=== PATIENT | female | born 1980 | race Caucasian/White ===

== ENCOUNTER 2019-01-21 23:30 | Emergency (ER) | payer OTHER ==
[~2019-01-21] VITALS: Ht 162.6 cm; Wt 99.8 kg
[~2019-01-21 23:30] MED LIST: CONTRAVE ER 8-1 EACH; COZAAR100 MG; FLAGYL500 MG PO; NORCO 10-325 T1 EACH PO; NORVASC5 MG PO; PRINIVIL20 MG PO
[2019-01-22 00:32] LABS: ABSOLUTE BASOPHILS 0.1 thou/uL (0.0-0.2); ABSOLUTE EOSINOPHILS 0.2 thou/uL (0.0-0.7); ABSOLUTE LYMPHOCYTES 2.8 thou/uL (0.8-5.3); ABSOLUTE MONOCYTES 0.6 thou/uL (0.0-1.2); ABSOLUTE NEUTROPHILS 7.4 thou/uL (1.6-8.1); BASOPHILS 0.6 %; EOSINOPHILS 1.4 %; HEMATOCRIT 41.5 % (37.0-47.0); HEMOGLOBIN 14.3 gm/dL (12.0-15.0); LYMPHOCYTES 25.1 %; MCH 30.7 pg (26.0-34.0); MCHC 34.5 g/dL (28.0-37.0); MCV 88.9 fL (80.0-100.0); MONOCYTES 5.7 %; MPV 8.3 fl. (7.2-11.1); NUCLEATED RBCS 0 /100WBC; PLATELET COUNT* 420 thou/uL (150-400); POLYS 67.2 %; RBC 4.67 mil/uL (4.20-5.00); RDW-CV 12.4 % (10.5-14.5); WBC 11.1 thou/uL (4.0-11.0)
[2019-01-22 00:37] LABS: CALCIUM 8.9 mg/dL (8.5-10.1); CREATININE 0.8 mg/dL (0.6-1.3); POTASSIUM 3.4 mmol/L (3.5-5.1)
[2019-01-22 00:42] LABS: ALBUMIN 3.6 g/dL (3.4-5.0); TOTAL BILIRUBIN 0.3 mg/dL (<0.1-1.0); TOTAL PROTEIN 7.6 g/dL (6.4-8.2)
[2019-01-22] MEDS ORDERED: ATIVAN0.5 MG PO (00:55)
[2019-01-22 01:04] LABS: URINE BILIRUBIN NEGATIVE (Negative); URINE BLOOD NEGATIVE (Negative); URINE CLARITY CLEAR; URINE COLOR YELLOW; URINE GLUCOSE-RANDOM NEGATIVE (Negative); URINE KETONES NEGATIVE (Negative); URINE LEUKOCYTES-REFLEX NEGATIVE (Negative); URINE NITRITE-REFLEX NEGATIVE (Negative); URINE PROTEIN NEGATIVE (Negative); URINE SPECIFIC GRAVITY 1.015 (1.005-1.030); URINE UROBILINOGEN 0.2 E.U./dl (0.2-1.0)
[2019-01-22 01:54] VITALS: BP 143/87
--- NOTE | 2019-01-22 11:40 | EKG ---
[place] [address] ELECTROCARDIOGRAM REPORT Name: KWESI DIXON Room: [facility]#: [id number] Admission: 01/21/19 Attend Phys: Discharge: 01/22/19 Date of : 78 Report #: [id number] THIS REPORT FOR: //name// [facility] ED Test Date: 2019-01-22 Test Time: 00:08:12 Pat Name: KWESI DIXON Department: Room: Gender: F Operations Lieutenant: PABLITO : 1980 Requested By: Zeyad Sena Order Number: [id number] MD: Melvin Elizondo Measurements Intervals [place] Rate: 82 P: 56 NM: 185 QRS: -2 QRSD: 93 T: 20 QT: 366 QTc: 428 Interpretive Statements Sinus rhythm Low voltage, precordial leads Nonspecific T abnormalities, anterior leads Compared to ECG 09/11/2016 20:38:55 Low QRS voltage now present T-wave abnormality now present Electronically Signed On 01-22-2019 11:40:23 CDT by Melvin Elizondo [email or web address] <ELECTRONICALLY SIGNED> By: Melvin Elizondo MD, [facility] 01/22/19 1140 0008 0008 Melvin Elizondo MD, [facility] /EPI
== END 2019-01-22 01:54 | disposition home or self-care (01) ==
LOC: M.ERS 23:30
PROVIDERS: Family Medicine
DX: F41.0 Panic disorder [episodic paroxysmal anxiety] (principal); I10 Essential (primary) hypertension; Z90.710 Acquired absence of both cervix and uterus; Z90.49 Acquired absence of other specified parts of digestive tract

== ENCOUNTER → 2020-05-30 | Outpatient (CLI) | payer OTHER ==
[~2020-05-30] MED LIST changes: +ATIVAN0.5 MG PO
== END ==
LOC: M.ULTRA 07:29
PROVIDERS: ATTEND Specialist
DX: K76.0 Fatty (change of) liver, not elsewhere classified (principal); K46.9 Unspecified abdominal hernia without obstruction or gangrene